=== PATIENT | female | born 1965 | race Caucasian/White ===

== ENCOUNTER 2018-06-01 08:33 | Emergency (ER) | payer OTHER ==
[~2018-06-01] VITALS: Ht 172.7 cm; Wt 97.5 kg
[~2018-06-01 08:33] MED LIST: ACETAMINOPHEN-1 EAC1 PO; NOHOMEMEDICATIONS; ROBAXIN500 MG PO; ZOFRAN ODT4 MG PO; ZOFRAN4 MG PO
[2018-06-01 08:38] VITALS: BP 113/74
[2018-06-01] MEDS ORDERED: ACETAMINOPHEN-1 EAC1 PO (08:55)
[2018-06-01] MEDS ORDERED: AMOXICILLIN500 M1 PO (08:55)
[2018-06-01] MEDS ORDERED: MAGIC MOUTHWASH PO (08:55)
== END 2018-06-01 09:01 | disposition home or self-care (01) ==
LOC: M.ERS 08:33
DX: J03.80 Acute tonsillitis due to other specified organisms (principal); B96.89 Other specified bacterial agents as the cause of diseases classified elsewhere; J45.909 Unspecified asthma, uncomplicated; Z90.49 Acquired absence of other specified parts of digestive tract

== ENCOUNTER → 2019-02-10 | Outpatient (CLI) | payer OTHER ==
[~2019-02-10] MED LIST changes: +AMOXICILLIN500 M1 PO; +MAGIC MOUTHWASH PO
== END ==
LOC: M.RAD 13:30
DX: Z12.31 Encounter for screening mammogram for malignant neoplasm of breast (principal)

== ENCOUNTER 2019-08-09 12:49 | Emergency (ER) | payer OTHER ==
[~2019-08-09] VITALS: Ht 172.7 cm; Wt 97.5 kg
[2019-08-09 13:36] LABS: INFLUENZA A ANTIGEN Negative (Negative); INFLUENZA B ANTIGEN Negative (Negative)
[2019-08-09] MEDS ORDERED: PREDNISONE 10 M10 MG PO (14:23)
[2019-08-09] MEDS ORDERED: VENTOLIN HFA 1818 GM INH (14:23)
[2019-08-09] MEDS ORDERED: AUGMENTIN 875-1 EACH PO (14:23)
[2019-08-09] MEDS ORDERED: TESSALON PERLE100 M1 PO (14:23)
[2019-08-09 14:46] VITALS: BP 149/78
== END 2019-08-09 14:47 | disposition home or self-care (01) ==
LOC: M.ERS 12:49
PROVIDERS: Physician Assistant
DX: J45.909 Unspecified asthma, uncomplicated (principal); J06.9 Acute upper respiratory infection, unspecified; Z90.49 Acquired absence of other specified parts of digestive tract

== ENCOUNTER 2021-09-12 03:50 | Emergency (ER) | payer OTHER ==
[~2021-09-12] VITALS: Ht 172.7 cm; Wt 102.1 kg
[~2021-09-12 03:50] MED LIST changes: +AUGMENTIN 875-1 EACH PO; +PREDNISONE 10 M10 MG PO; +TESSALON PERLE100 M1 PO; +VENTOLIN HFA 1818 GM INH
[2021-09-12] MEDS ORDERED: TORADOL 10 MG T10 MG PO (04:49)
[2021-09-12] MEDS ORDERED: NORFLEX100 MG PO (04:49)
[2021-09-12] MEDS ORDERED: ACETAMINOPHEN-1 EAC2 PO (04:49)
[2021-09-12 08:09] LABS: URINE BILIRUBIN NEGATIVE (Negative); URINE BLOOD NEGATIVE (Negative); URINE CLARITY CLEAR; URINE COLOR YELLOW; URINE GLUCOSE-RANDOM NEGATIVE (Negative); URINE KETONES NEGATIVE (Negative); URINE LEUKOCYTES-REFLEX NEGATIVE (Negative); URINE NITRITE-REFLEX NEGATIVE (Negative); URINE PROTEIN NEGATIVE (Negative); URINE SPECIFIC GRAVITY 1.015 (1.005-1.030); URINE UROBILINOGEN 0.2 E.U./dl (0.2-1.0)
[2021-09-12 08:16] LABS: AMP/METHAMP Negative (Negative); BARBITURATES Negative (Negative); BENZODIAZEPINES Negative (Negative); COCAINE Negative (Negative); METHADONE Negative (Negative); OPIATES POSITIVE (Negative); PCP Negative (Negative); THC Negative (Negative)
[2021-09-12 08:54] VITALS: BP 119/72
== END 2021-09-12 08:54 | disposition home or self-care (01) ==
LOC: M.ERS 03:50
PROVIDERS: Personal Emergency Response Attendant
DX: S33.5XXA Sprain of ligaments of lumbar spine, initial encounter (principal); M25.551 Pain in right hip; R10.31 Right lower quadrant pain; J45.909 Unspecified asthma, uncomplicated; Z90.49 Acquired absence of other specified parts of digestive tract; W06.XXXA Fall from bed, initial encounter; Y93.89 Activity, other specified; Y92.89 Other specified places as the place of occurrence of the external cause; Y99.8 Other external cause status